=== PATIENT | male | born 1970 | race Caucasian/White ===

== ENCOUNTER 2019-03-24 17:58 | Emergency (ER) | payer OTHER ==
[~2019-03-24] VITALS: Ht 180.3 cm; Wt 109.0 kg
[2019-03-24] MEDS ORDERED: ONDANSETRON 4MG/2ML VIAL (J2405) IV ONE (19:00)
[2019-03-24] MEDS ORDERED: KETOROLAC 30 MG/ML VIAL (J1885) IV ONE (19:00)
[2019-03-24] MEDS ORDERED: NS 1,000 ML IV ONE (19:00)
[2019-03-24 19:46] LABS: BASO % 0.3 % (0.0-1.0); EOS # 0.2 10^3/uL (0.0-0.50); EOS % 2.2 % (0.0-3.0); HEMATOCRIT 39.2 % (42.0-52.0); HEMOGLOBIN 12.3 g/dl (13.5-17.5); LYMPH # 1.8 10^3/uL (1.5-4.5); LYMPH % 24.1 % (24.0-44.0); MEAN CORPUSCULAR HEMOGLOBIN 27.8 pg (27.0-33.0); MEAN CORPUSCULAR HGB CONC 31.4 g/dl (32.0-36.5); MEAN CORPUSCULAR VOLUME 88.5 fl (80.0-96.0); MONO # 0.5 10^3/uL (0.0-0.8); MONO % 6.6 % (0.0-5.0); NEUTROPHILS # 4.9 10^3/uL (1.8-7.7); NEUTROPHILS % 66.5 % (36.0-66.0); PLATELET COUNT, AUTOMATED 237 10^3/uL (150-450); RED BLOOD COUNT 4.43 10^6/uL (4.30-6.10); WHITE BLOOD COUNT 7.3 10^3/uL (4.0-10.0)
[2019-03-24 19:57] LABS: INR 0.92; PROTHROMBIN TIME 12.4 SECONDS (12.1-14.4)
[2019-03-24 19:58] LABS: PARTIAL THROMBOPLASTIN TIME 33.3 SECONDS (25.4-37.6)
[2019-03-24 20:12] LABS: ALBUMIN 3.6 GM/DL (3.2-5.2); ALT/SGPT 22 U/L (12-78); BILIRUBIN,DIRECT < 0.1 MG/DL (0.0-0.2); BILIRUBIN,TOTAL 0.3 MG/DL (0.2-1.0); BLOOD UREA NITROGEN 12 MG/DL (7-18); CALCIUM LEVEL 8.8 MG/DL (8.5-10.1); CARBON DIOXIDE LEVEL 29 MEQ/L (21-32); CHLORIDE LEVEL 107 MEQ/L (98-107); CREATININE FOR GFR 0.91 MG/DL (0.70-1.30); GLOMERULAR FILTRATION RATE > 60.0 (>60); GLUCOSE, FASTING 83 MG/DL (70-100); LIPASE 65 U/L (73-393); POTASSIUM SERUM 4.1 MEQ/L (3.5-5.1); SODIUM LEVEL 139 MEQ/L (136-145)
[2019-03-24] MEDS ORDERED: MORPHINE 4 MG/ML 1ML VIAL/SYRINGE (J2270) IV ONE (20:15)
[2019-03-24] MEDS ORDERED: ISOVUE-370 76% 100ML VIAL (Q9967) As Ordered ONE (20:30)
--- NOTE | 2019-03-24 21:31 | REPVR ---
EXAM: CT Abdomen and Pelvis With Contrast EXAM DATE/TIME: 03/24/2019 8:33 PM CLINICAL HISTORY: 48 years old, male; Abdominal pain; Generalized; Prior surgery; Surgery date: 6+ months; Surgery type: Colon resections from chrons, gall bladder, appendix; Additional info: Abd pain TECHNIQUE: Imaging protocol: Axial computed tomography images of the abdomen and pelvis with intravenous contrast. Coronal and sagittal reformatted images were created and reviewed. Radiation optimization: All CT scans at this facility use at least one of these dose optimization techniques: automated exposure control; mA and/or kV adjustment per patient size (includes targeted exams where dose is matched to clinical indication); or iterative reconstruction. Contrast material: ISOVUE 370; Contrast volume: 100 ml; Contrast route: POWER PORT; COMPARISON: No relevant prior studies available. FINDINGS: Lungs: No suspicious mass or airspace process in the visualized lung bases. Heart: Multi-chamber cardiac dilatation is noted. No evidence of acute pulmonary edema. ABDOMEN: Liver: Liver appears normal with no focal abnormality. Gallbladder and bile ducts: Gallbladder is surgically absent. Pancreas: Pancreas appears normal. No focal mass or peripancreatic inflammation. Spleen: Spleen appears homogeneous without focal mass. Adrenals: Adrenal glands are normal in appearance. Kidneys and ureters: Kidneys are unremarkable aside from nonobstructive lower pole left renal stones. Stomach and bowel: No evidence of small bowel obstruction. Partial right hemicolectomy change. No evidence of acute diverticulitis. Appendix: Appendix is absent related to the prior surgery, correlating with provided history. PELVIS: Bladder: Bladder appears normal. Reproductive: Dystrophic prostate calcifications are noted. ABDOMEN and PELVIS: Intraperitoneal space: No pneumoperitoneum. Bones/joints: Bony structures show no acute fracture or destructive process. Right SI joint fusion hardware is present Soft tissues: Small periumbilical ventral hernias are present containing fat. No inflammation or bowel entrapment. Vasculature: No aortic aneurysm. Main portal and splenic veins enhance normally. Lymph nodes: Normal. No enlarged lymph nodes. IMPRESSION: 1. No acute surgical or inflammatory intra-abdominal or pelvic process. 2. Nonobstructive right renal calculi. 3. Postsurgical changes of the proximal colon with partial resection. No complication or evidence of active bowel inflammation. Electronically signed by: Aubrey Mckenzie On 03/24/2019 21:31:02 PM
[2019-03-24] MEDS ORDERED: PRED5TA PO (22:10)
[2019-03-24] MEDS ORDERED: ONDA4TAB6 PO (22:11)
[2019-03-24] MEDS ORDERED: methylPREDNISolone INJ 125 MG/2 ML VIAL (J2930) IV ONE (22:15)
[2019-03-24 22:33] VITALS: BP 130/81
[2019-03-24] MEDS ORDERED: SODIUM CHLORIDE 0.9% INJ 10 ML SYR IV PRN (22:45)
--- NOTE | 2019-03-25 14:22 | REP ---
CHEST, SINGLE VIEW: Single view of the chest is performed. There is mild bibasilar fibroatelectatic change without evidence of acute infiltrate. Heart is upper limits of normal in size and there is mild tortuosity of the thoracic aorta. Mediastinal silhouette otherwise appears unremarkable. Right central venous catheter is seen with the tip at the junction of the superior vena cava and right atrium. Electronically Signed by Jonny Flynn MD 03/25/2019 03:55 P
== END 2019-03-24 23:05 | disposition home or self-care (01) ==
LOC: M ED 17:58
DX: K50.90 Crohn's disease, unspecified, without complications (principal); Z86.19 Personal history of other infectious and parasitic diseases; Z87.19 Personal history of other diseases of the digestive system; Z87.820 Personal history of traumatic brain injury; F43.10 Post-traumatic stress disorder, unspecified; Z90.49 Acquired absence of other specified parts of digestive tract; Z79.899 Other long term (current) drug therapy
CPT/HCPCS: 71045; 74177; 80048; 80076; 81001; 83690; 85025; 85610; 85730; 86850; 86900; 86901; 96374; 96375; 99284; J1885; J2270; J2405; J2930; Q9967